=== PATIENT | female | born 1940 | race Caucasian/White ===

== ENCOUNTER → 2021-03-07 | Outpatient (CLI) | payer MEDICARE ==
[~2021-03-07] MED LIST: SOTROVIMAB 500 MG in IV DEXTROSE 5% 50 ML IV ONE
[2021-03-07 13:15] VITALS: BP 144/66
[2021-03-07 13:40] VITALS: BP 129/60
[2021-03-07 13:55] VITALS: BP 132/60
[2021-03-07 14:17] VITALS: BP 127/62
[2021-03-07 15:00] VITALS: BP 123/58
== END | disposition home or self-care (01) ==
LOC: OPSVCOP 11:19
PROVIDERS: ATTEND Internal Medicine Pulmonary Disease
DX: U07.1 COVID-19 (principal)
CPT/HCPCS: J7060; M0247; Q0247; 96365